=== PATIENT | female | born 1975 ===

== ENCOUNTER 2017-08-12 03:54 | Emergency (ER) | payer SELFPAY ==
[2017-08-12 03:54] VITALS: BMI 33.5
[2017-08-12 04:09] VITALS: O2SAT 100
[2017-08-12] MEDS ORDERED: Sodium Chloride 0.9% 1,000 ML IV STA (04:39)
--- NOTE | 2017-08-12 04:42 | ED PDOC ---
HPI: CCC, URI, Sore Throat Time Seen by Provider: 08/12/17 04:05 Chief Complaint (Nursing): Flu-like Symptoms Chief Complaint (Provider): cough, congestion History Per: Patient History/Exam Limitations: no limitations Onset/Duration Of Symptoms: Days (3) Current Symptoms Are (Timing): Still Present Associated Symptoms: Chills, Sore Throat, Cough, Sputum, Nasal Congestion Additional History Per: Patient Additional Complaint(s): 42 y/o female presents with cough, congestion x 3 days. Patient reports ear pressure/fullness, nasal congestion, cough productive of green phlegm. No medications taken for relief thus far. Denies fever, nausea/vomiting, chest pain, shortness of breath, palpitations, abdominal pain, recent travel, sick contacts. Past Medical History Reviewed: Historical Data, Nursing Documentation, Vital Signs Vital Signs: Last Vital Signs Temp 99.4 F 08/12/17 05:48 Pulse 114 H 08/12/17 05:48 Resp 20 08/12/17 05:48 BP 137/89 08/12/17 04:02 Pulse Ox 100 08/12/17 06:02 - Medical History PMH: HTN, Hypercholesterolemia, Hyperthyroidism, Hypothyroidism - Family History Family History: States: Unknown Family Hx - Immunization History Hx Tetanus Toxoid Vaccination: No Hx Influenza Vaccination: Yes Hx Pneumococcal Vaccination: No - Home Medications Home Medications: Ambulatory Orders Medication Instructions Recorded Metoprolol Succinate 50 mg PO DAILY 06/12/14 Enalapril Maleate [Vasotec] 20 mg PO DAILY #30 tab 08/26/14 Atorvastatin [Lipitor] 20 mg PO DAILY 06/07/17 Famotidine [Pepcid] 20 mg PO BID #20 tab 06/07/17 Levothyroxine [Synthroid] 0.2 mg PO DAILY 06/07/17 Fluticasone Nasal [Flonase] 1 actuation NS BID #1 bottle 08/12/17 Guaifenesin/Dextromethorphan 1 tab PO Q12 #10 tab.er.12h 08/12/17 [Mucinex Dm ER 1,200-60 mg Tab] Ibuprofen [Motrin Tab] 1 tab PO Q6 PRN #15 tab 08/12/17 - Allergies Allergies/Adverse Reactions: Allergies Allergy/AdvReac Type Severity Reaction Status Date / Time PEANUT BUTTER Allergy Intermediate RASH Uncoded 06/07/17 18:27 Review of Systems ROS Statement: Except As Marked, All Systems Reviewed And Found Negative Constitutional: Positive for: Chills ENT: Positive for: Nose Congestion Respiratory: Positive for: Cough, Sputum Physical Exam - Reviewed Nursing Documentation Reviewed: Yes Vital Signs Reviewed: Yes - Physical Exam Appears: Positive for: Well, Non-toxic, No Acute Distress Head Exam: Positive for: ATRAUMATIC, NORMAL INSPECTION, NORMOCEPHALIC Skin: Positive for: Normal Color Eye Exam: Positive for: Normal appearance ENT: Positive for: Nasal Congestion Cardiovascular/Chest: Positive for: Regular Rate, Rhythm Respiratory: Positive for: Normal Breath Sounds Gastrointestinal/Abdominal: Positive for: Normal Exam Back: Positive for: Normal Inspection Extremity: Positive for: Normal ROM Neurologic/Psych: Positive for: Alert, Oriented - Laboratory Results Result Diagrams: 08/12/17 04:50 08/12/17 04:50 - ECG ECG: Positive for: Viewed By Me (reviewed by ED attending) ECG Rhythm: Positive for: Sinus Tachycardia O2 Sat by Pulse Oximetry: 100 - Radiology X-Ray: Viewed By Me X-Ray Interpretation: No Acute Disease - Progress ED Course And Treament: labs, flu, strep, chest xray On re-eval, patient states she is feeling better. Patient educated on findings, discharged with rx flonase, ibuprofen, mucinex dm Advised fluids, rest. FOllow up PMD 2-3 days. Return precautions given. Disposition - Clinical Impression Clinical Impression: Upper respiratory infection - Patient ED Disposition Is Patient to be Admitted: No Counseled Patient/Family Regarding: Studies Performed, Diagnosis, Need For Followup, Rx Given - Disposition Referrals: Mechelle Morrell [Primary Care Provider] - Disposition: Routine/Home Disposition Time: 06:08 Condition: IMPROVED Prescriptions: Fluticasone Nasal [Flonase] 1 actuation NS BID #1 bottle Guaifenesin/Dextromethorphan [Mucinex Dm ER 1,200-60 mg Tab] 1 tab PO Q12 #10 tab.er.12h Ibuprofen [Motrin Tab] 1 tab PO Q6 PRN #15 tab PRN Reason: Pain, Moderate (4-7) Instructions: Upper Respiratory Infection (ED) Print Language: KINYARWANDA
[2017-08-12 05:26] LABS: BASO % 0.2 % (0.0-2.0); EOS # 0.1 K/uL (0.0-0.7); EOS % 2.2 % (0.0-4.0); HEMOGLOBIN 11.9 g/dL (12.0-16.0); LYMPH % 19.5 % (20.0-40.0); MEAN CELL VOLUME 77.3 fl (81.0-99.0); MEAN CORPUSCULAR HEMOGLOBIN 24.1 pg (27.0-31.0); MEAN CORPUSCULAR HGB CONC 31.2 g/dL (33.0-37.0); MONO # 0.5 K/uL (0.0-0.8); MONO % 9.4 % (0.0-10.0); NEUT # 3.4 K/uL (1.8-7.0); NEUT % 68.7 % (50.0-75.0); NRBC % 0.1 % (0.0-0.0); RBC 4.94 Mil/uL (3.80-5.20); RED CELL DISTRIBUTION WIDTH 16.2 % (11.5-14.5)
[2017-08-12 05:30] LABS: ALB/GLOB RATIO 1.2 (1.0-2.1); ALBUMIN 4.3 g/dL (3.5-5.0); ALT/SGPT 63 U/L (9-52); AST/SGOT 51 U/L (14-36); BLOOD UREA NITROGEN 14 mg/dl (7-17); CALCIUM 9.4 mg/dL (8.4-10.2); GFR AFRICAN-AMERICAN > 60; GFR NON-AFRICAN AMERICAN > 60
[2017-08-12 05:57] VITALS: TEMP 99.4
[2017-08-12 06:14] VITALS: BP 136/84; PULSE 103; RESP 18
--- NOTE | 2017-08-12 08:34 | RAD ---
HISTORY: cough, congestion COMPARISON: None available. TECHNIQUE: Chest PA and lateral FINDINGS: Examination limited by habitus. LUNGS: No focal consolidation. Please note that chest x-ray has limited sensitivity for the detection of pulmonary masses. PLEURA: No significant pleural effusion identified. No definite pneumothorax . CARDIOVASCULAR: The cardiomediastinal silhouette appears within normal limits of size. OSSEOUS STRUCTURES: No acute osseous abnormality identified. VISUALIZED UPPER ABDOMEN: Unremarkable. OTHER FINDINGS: None. IMPRESSION: No focal consolidation, significant pleural effusion, or definite pneumothorax identified.
--- NOTE | 2017-08-12 10:40 | CARD ---
APPROVED REPORT EKG Measurement Heart [id number] <Conclusion> Sinus tachycardia Inferior infarct, age undetermined Abnormal ECG
== END 2017-08-12 06:14 | disposition home or self-care (01) ==
LOC: H.ER 03:54
DX: J06.9 Acute upper respiratory infection, unspecified (principal); E03.9 Hypothyroidism, unspecified; E05.90 Thyrotoxicosis, unspecified without thyrotoxic crisis or storm; E78.00 Pure hypercholesterolemia, unspecified; I10 Essential (primary) hypertension
CPT/HCPCS: 71046; 80053; 81025; 85025; 87070; 87430; 87804; 93005; 96360; 99284; J7040